=== PATIENT | female | born 1945 ===

== ENCOUNTER 2024-09-06 05:47 | Day surgery (SDC) | payer OTHER ==
[2024-09-04 14:53] VITALS: BP 150/70
[~2024-09-06] VITALS: Ht 157.5 cm; Wt 67.1 kg
[~2024-09-06 05:47] MED LIST: BISOPROLOL FUMA10 MG PO; GLIMEPIRIDE1 M1 PO; OMEGA-31000 MG PO; OMEPRAZOLE-BIC1 EAC1 PO; PEPCID40 MG PO; PRAVASTATIN SOD40 MG PO
[2024-09-06] MEDS ORDERED: HEMOSTATIC MATRIX 1 KIT KIT TOP ONE (07:14)
[2024-09-06] MEDS ORDERED: POVIDONE-IODINE 118 ML BOTT TOP ONE (07:14)
[2024-09-06] MEDS ORDERED: BUPIVACAINE HCL/MPF 0.5% 30ML VIAL ONE (07:14)
[2024-09-06] MEDS ORDERED: DIBUCAINE 30 GM TUBE ONE (07:14)
[2024-09-06] MEDS ORDERED: LIDOCAINE HCL 1%/EPINEPHRINE 20ML VIAL IJ ONE (07:15)
[2024-09-06] MEDS ORDERED: METRONIDAZOLE/SODIUM CHLORIDE 500 MG/100 ML PIGGYBACK IV ONE (07:15)
[2024-09-06] MEDS ORDERED: TRIAMCINOLONE ACETONIDE 40 MG/ML VIAL ONE (07:55)
== END 2024-09-06 12:15 | disposition home or self-care (01) ==
LOC: CIR.AMB 05:47
PROVIDERS: ATTEND Colon & Rectal Surgery
DX: K64.1 Second degree hemorrhoids (principal); K64.4 Residual hemorrhoidal skin tags; K64.2 Third degree hemorrhoids; Z88.6 Allergy status to analgesic agent; K62.2 Anal prolapse